=== PATIENT | male | born 1995 | race Caucasian/White ===

== ENCOUNTER → 2017-04-03 00:28 | Emergency (ER) | payer OTHER ==
[~2017-04-03 00:28] MED LIST: Acetaminophen TAB* 325 MG PO PRN; Al Hydrox/Mg Hydrox/Simet LIQ* 30 ML UDC PO PRN; Vitamin THERAPEUTIC TAB PO SCH
[2017-04-03 01:27] LABS: Hematocrit 39 % (42-52); Hemoglobin 13.5 g/dl (14.0-18.0); Mean Corpuscular HGB Conc 34 g/dl (31-36); Mean Corpuscular Hemoglobin 30 pg (27-31); Mean Corpuscular Volume 88 fL (80-94); Mean Platelet Volume 8 um3 (7.4-10.4); Red Blood Count 4.45 10^6/ul (4.0-5.4); Red Cell Distribution Width 13 % (10.5-15); White Blood Count 11.1 10^3/ul (3.5-10.8)
[2017-04-03 01:41] LABS: Urine Bilirubin Negative (Negative); Urine Glucose Negative (Negative); Urine Nitrite Negative (Negative)
[2017-04-03 01:41] LABS: ALT 12 U/L (7-52); AST 12 U/L (13-39); Acetaminophen < 15 mcg/mL; Albumin 4.6 g/dL (3.2-5.2); Alcohol 142 mg/dL (<10); Alkaline Phosphatase 40 U/L (34-104); Anion Gap 7 mmol/L (2-11); BUN/Creatinine Ratio 11.5 (8-20); Blood Urea Nitrogen 11 mg/dL (6-24); CO2 Carbon Dioxide 25 mmol/L (22-32); Calcium 9.1 mg/dL (8.6-10.3); Chloride 106 mmol/L (101-111); EGFR African American 124.8 (>60); EGFR Non-African American 97.1 (>60); Globulin 2.8 g/dL (2-4); Glucose 95 mg/dL (70-100); Potassium 3.5 mmol/L (3.5-5.0); Salicylate < 2.50 mg/dL (<30); Sodium 138 mmol/L (133-145); Total Protein 7.4 g/dL (6.4-8.9)
[2017-04-03 01:44] LABS: Benzodiazepine Urine Screen None Detected (None Detect)
[2017-04-03 01:52] LABS: TSH (Thyroid Stimulating Horm) 2.21 mcIU/mL (0.34-5.60)
--- NOTE | 2017-04-03 06:23 | ED ---
eLv Dominguez Rebecca, scribed for Ash Massey on 04/03/17 at 0055 . Psychiatric Complaint - HPI Summary HPI Summary: Pt is a 21 y/o M who presents to ED c/o depression with SIs. Pt reports that his current sx have been aggravated by his being trans, alleviated by nothing. Per triage, the pt had stated that he tried to hang himself. PMHx depression for which he is no longer on medication. - History Of Current Complaint Chief Complaint: EDMentalHealth Time Seen by Provider: 04/03/17 00:41 Hx Obtained From: Patient Onset/Duration: Still Present Character: Depressed Aggravating Factor(s): Other - Being trans Alleviating Factor(s): Nothing Associated Signs And Symptoms: Positive: Negative Related History: Positive For: Prior Psychiatric Issues - Depression Has Suicidal: Reports: Thoughts, With A Plan, Demonstrates Gesture - Per triage , pt reports trying to hang himself tonight Recent Stressor(s): Being trans - Allergies/Home Medications Allergies/Adverse Reactions: Allergies Allergy/AdvReac Type Severity Reaction Status Date / Time No Known Allergies Allergy Verified 04/03/17 00:36 PMH/Surg Hx/FS Hx/Imm Hx Endocrine/Hematology History: Denies: Hx Diabetes Psychiatric History: Reports: Hx Depression Infectious Disease History: No Infectious Disease History: Denies: Traveled Outside the [place] in Last 30 Days - Family History Known Family History: Negative: Diabetes - Social History Occupation: Student Alcohol Use: Occasionally Substance Use Type: Reports: None Review of Systems Negative: Fever Positive: Depressed, Other - SIs All Other Systems Reviewed And Are Negative: Yes Physical Exam - Summary Physical Exam Summary: Appearance: Well appearing, no pain distress Skin: warm, dry, reflects adequate perfusion Head/face: normal Eyes: EOMI, THEO ENT: normal Neck: supple, nontender Respiratory: CTA, breath sounds present Cardiovascular: RRR, pulses symmetrical Abdomen: nontender, soft Bowel: present Musculoskeletal: normal, strength/ROM intact Neuro: normal, sensory motor intact, A&Ox3 Psychiatric: Depressed Triage Information Reviewed: Yes Vital Signs On Initial Exam: Initial Vitals Temp Pulse Resp BP Pulse Ox 98.3 F 90 14 127/81 100 04/03/17 00:34 04/03/17 00:34 04/03/17 00:34 04/03/17 00:34 04/03/17 00:34 Vital Signs Reviewed: Yes Diagnostics - Vital Signs Vital Signs Temp Pulse Resp BP Pulse Ox 04/03/17 00:34 98.3 F 90 14 127/81 100 - Laboratory Result Diagrams: 04/03/17 01:07 04/03/17 01:07 Lab Statement: Any lab studies that have been ordered have been reviewed, and results considered in the medical decision making process. Course/Dx - Course Assessment/Plan: Pt is a 21 y/o M who presents to ED c/o depression with SIs. Pt reports that his current sx have been aggravated by his being trans, alleviated by nothing. Per triage, the pt had stated that he tried to hang himself. PMHx depression for which he is no longer on medication. Medically cleared for MHE at 0252. Upon completiion of MHE and consultation with Dr. Perry it has been determined that the pt will be admitted as an involuntary admission. Patient understands and agrees. Elevated BP noted and advised to f/u with PCP. - Differential Dx/Clinical Impression Provider Diagnosis: Depression, Suicidal ideations Discharge - Discharge Plan Condition: Stable Disposition: PSYCHIATRIC FACILITY-[facility] [place] The documentation as recorded by the Lev restrepo Rebecca accurately reflects the service I personally performed and the decisions made by , Ash Massey.
[2017-04-03 09:26] VITALS: BP 136/78
--- NOTE | 2017-04-04 09:06 | PN ---
ED Flex Patient Progress Note Subjective: This is a 21 year-old M who is pending transfer to another psychiatric facility secondary to attempted suicide via hanging. Patient remains a threat to himself. Objective: depressed with SI to hang self Assessment: Unspecified Depressive DO Plan: Pending transfer. Will follow up daily. Vital Signs Temp Pulse Resp BP Pulse Ox 99.5 F 103 16 136/78 100 04/03/17 09:26 04/03/17 09:26 04/03/17 09:26 04/03/17 09:26 04/03/17 09:26 Lab Results - Entire Visit 04/03/17 04/03/17 04/03/17 01:07 01:07 01:03 WBC 11.1 H RBC 4.45 Hgb 13.5 L Hct 39 L MCV 88 MCH 30 MCHC 34 RDW 13 Plt Count 328 MPV 8 Neut % (Auto) 66.0 Lymph % (Auto) 26.4 [place] % (Auto) 6.2 Eos % (Auto) 1.1 Baso % (Auto) 0.3 Absolute Neuts (auto) 7.3 Absolute Lymphs (auto) 2.9 Absolute Monos (auto) 0.7 Absolute Eos (auto) 0.1 Absolute Basos (auto) 0 Absolute Nucleated RBC 0.01 Nucleated RBC % 0 Sodium 138 Potassium 3.5 Chloride 106 Carbon Dioxide 25 Anion Gap 7 BUN 11 Creatinine 0.96 Est GFR ( Amer) 124.8 Est GFR (Non-Af Amer) 97.1 BUN/Creatinine Ratio 11.5 Glucose 95 Calcium 9.1 Total Bilirubin 0.30 AST 12 L ALT 12 Alkaline Phosphatase 40 Total Protein 7.4 Albumin 4.6 Globulin 2.8 Albumin/Globulin Ratio 1.6 TSH 2.21 Urine Color Straw Urine Appearance Clear Urine pH 5.0 Ur Specific [place] 1.009 L Urine Protein Negative Urine Ketones Trace H Urine Blood Negative Urine Nitrate Negative Urine Bilirubin Negative Urine Urobilinogen Negative Ur Leukocyte Esterase Negative Urine Glucose Negative Salicylates < 2.50 Urine Opiates Screen Acetaminophen < 15 Ur Barbiturates Screen Ur Phencyclidine Scrn Ur Amphetamines Screen U Benzodiazepines Scrn Urine Cocaine Screen U Cannabinoids Screen Serum Alcohol 142 H 04/03/17 01:03 WBC RBC Hgb Hct MCV MCH MCHC RDW Plt Count MPV Neut % (Auto) Lymph % (Auto) [place] % (Auto) Eos % (Auto) Baso % (Auto) Absolute Neuts (auto) Absolute Lymphs (auto) Absolute Monos (auto) Absolute Eos (auto) Absolute Basos (auto) Absolute Nucleated RBC Nucleated RBC % Sodium Potassium Chloride Carbon Dioxide Anion Gap BUN Creatinine Est GFR ( Amer) Est GFR (Non-Af Amer) BUN/Creatinine Ratio Glucose Calcium Total Bilirubin AST ALT Alkaline Phosphatase Total Protein Albumin Globulin Albumin/Globulin Ratio TSH Urine Color Urine Appearance Urine pH Ur Specific [place] Urine Protein Urine Ketones Urine Blood Urine Nitrate Urine Bilirubin Urine Urobilinogen Ur Leukocyte Esterase Urine Glucose Salicylates Urine Opiates Screen None detected Acetaminophen Ur Barbiturates Screen None detected Ur Phencyclidine Scrn None detected Ur Amphetamines Screen None detected U Benzodiazepines Scrn None detected Urine Cocaine Screen None detected U Cannabinoids Screen None detected Serum Alcohol
--- NOTE | 2017-04-04 10:01 | PN ---
ED Flex Patient Progress Note Subjective: This is a 21 year-old M who is pending transfer to another psychiatric facility secondary to suicidal ideation with plan/attempt . Pt offers no complaints at this. Slept well last night and ate well this morning. Objective: Vitals: Most recent vital signs documented below. General NAD, Alert and oriented x3. Heart: S1/S2, RRR Lungs: CTA Ab: soft, NTTP Assessment: SI Plan: Pending psychiatric transfer - will follow up daily until transfer or d/ c. Vital Signs Temp Pulse Resp BP Pulse Ox 99.5 F 103 16 136/78 100 04/03/17 09:26 04/03/17 09:26 04/03/17 09:26 04/03/17 09:26 04/03/17 09:26 Lab Results - Entire Visit 04/03/17 04/03/17 04/03/17 01:07 01:07 01:03 WBC 11.1 H RBC 4.45 Hgb 13.5 L Hct 39 L MCV 88 MCH 30 MCHC 34 RDW 13 Plt Count 328 MPV 8 Neut % (Auto) 66.0 Lymph % (Auto) 26.4 [place] % (Auto) 6.2 Eos % (Auto) 1.1 Baso % (Auto) 0.3 Absolute Neuts (auto) 7.3 Absolute Lymphs (auto) 2.9 Absolute Monos (auto) 0.7 Absolute Eos (auto) 0.1 Absolute Basos (auto) 0 Absolute Nucleated RBC 0.01 Nucleated RBC % 0 Sodium 138 Potassium 3.5 Chloride 106 Carbon Dioxide 25 Anion Gap 7 BUN 11 Creatinine 0.96 Est GFR ( Amer) 124.8 Est GFR (Non-Af Amer) 97.1 BUN/Creatinine Ratio 11.5 Glucose 95 Calcium 9.1 Total Bilirubin 0.30 AST 12 L ALT 12 Alkaline Phosphatase 40 Total Protein 7.4 Albumin 4.6 Globulin 2.8 Albumin/Globulin Ratio 1.6 TSH 2.21 Urine Color Straw Urine Appearance Clear Urine pH 5.0 Ur Specific [place] 1.009 L Urine Protein Negative Urine Ketones Trace H Urine Blood Negative Urine Nitrate Negative Urine Bilirubin Negative Urine Urobilinogen Negative Ur Leukocyte Esterase Negative Urine Glucose Negative Salicylates < 2.50 Urine Opiates Screen Acetaminophen < 15 Ur Barbiturates Screen Ur Phencyclidine Scrn Ur Amphetamines Screen U Benzodiazepines Scrn Urine Cocaine Screen U Cannabinoids Screen Serum Alcohol 142 H 04/03/17 01:03 WBC RBC Hgb Hct MCV MCH MCHC RDW Plt Count MPV Neut % (Auto) Lymph % (Auto) [place] % (Auto) Eos % (Auto) Baso % (Auto) Absolute Neuts (auto) Absolute Lymphs (auto) Absolute Monos (auto) Absolute Eos (auto) Absolute Basos (auto) Absolute Nucleated RBC Nucleated RBC % Sodium Potassium Chloride Carbon Dioxide Anion Gap BUN Creatinine Est GFR ( Amer) Est GFR (Non-Af Amer) BUN/Creatinine Ratio Glucose Calcium Total Bilirubin AST ALT Alkaline Phosphatase Total Protein Albumin Globulin Albumin/Globulin Ratio TSH Urine Color Urine Appearance Urine pH Ur Specific [place] Urine Protein Urine Ketones Urine Blood Urine Nitrate Urine Bilirubin Urine Urobilinogen Ur Leukocyte Esterase Urine Glucose Salicylates Urine Opiates Screen None detected Acetaminophen Ur Barbiturates Screen None detected Ur Phencyclidine Scrn None detected Ur Amphetamines Screen None detected U Benzodiazepines Scrn None detected Urine Cocaine Screen None detected U Cannabinoids Screen None detected Serum Alcohol
--- NOTE | 2017-04-04 11:25 | PN ---
ED Flex Patient Progress Note Pt goes by "Sherri" and requesting to use transgender medications today - she brought these with her yesterday. They include delestrogen, finasteride, spironoloctone and progesterone. Spoke w/ Shalini Montero who provides medical care through [facility] - she confirms these meds are currently rx'd and okay to continue medically as long as okay with MH. Call out to psychiatrist to discuss. Vital Signs Temp Pulse Resp BP Pulse Ox 99.5 F 103 16 136/78 100 04/03/17 09:26 04/03/17 09:26 04/03/17 09:26 04/03/17 09:26 04/03/17 09:26 Lab Results - Entire Visit 04/03/17 04/03/17 04/03/17 01:07 01:07 01:03 WBC 11.1 H RBC 4.45 Hgb 13.5 L Hct 39 L MCV 88 MCH 30 MCHC 34 RDW 13 Plt Count 328 MPV 8 Neut % (Auto) 66.0 Lymph % (Auto) 26.4 [place] % (Auto) 6.2 Eos % (Auto) 1.1 Baso % (Auto) 0.3 Absolute Neuts (auto) 7.3 Absolute Lymphs (auto) 2.9 Absolute Monos (auto) 0.7 Absolute Eos (auto) 0.1 Absolute Basos (auto) 0 Absolute Nucleated RBC 0.01 Nucleated RBC % 0 Sodium 138 Potassium 3.5 Chloride 106 Carbon Dioxide 25 Anion Gap 7 BUN 11 Creatinine 0.96 Est GFR ( Amer) 124.8 Est GFR (Non-Af Amer) 97.1 BUN/Creatinine Ratio 11.5 Glucose 95 Calcium 9.1 Total Bilirubin 0.30 AST 12 L ALT 12 Alkaline Phosphatase 40 Total Protein 7.4 Albumin 4.6 Globulin 2.8 Albumin/Globulin Ratio 1.6 TSH 2.21 Urine Color Straw Urine Appearance Clear Urine pH 5.0 Ur Specific [place] 1.009 L Urine Protein Negative Urine Ketones Trace H Urine Blood Negative Urine Nitrate Negative Urine Bilirubin Negative Urine Urobilinogen Negative Ur Leukocyte Esterase Negative Urine Glucose Negative Salicylates < 2.50 Urine Opiates Screen Acetaminophen < 15 Ur Barbiturates Screen Ur Phencyclidine Scrn Ur Amphetamines Screen U Benzodiazepines Scrn Urine Cocaine Screen U Cannabinoids Screen Serum Alcohol 142 H 04/03/17 01:03 WBC RBC Hgb Hct MCV MCH MCHC RDW Plt Count MPV Neut % (Auto) Lymph % (Auto) [place] % (Auto) Eos % (Auto) Baso % (Auto) Absolute Neuts (auto) Absolute Lymphs (auto) Absolute Monos (auto) Absolute Eos (auto) Absolute Basos (auto) Absolute Nucleated RBC Nucleated RBC % Sodium Potassium Chloride Carbon Dioxide Anion Gap BUN Creatinine Est GFR ( Amer) Est GFR (Non-Af Amer) BUN/Creatinine Ratio Glucose Calcium Total Bilirubin AST ALT Alkaline Phosphatase Total Protein Albumin Globulin Albumin/Globulin Ratio TSH Urine Color Urine Appearance Urine pH Ur Specific [place] Urine Protein Urine Ketones Urine Blood Urine Nitrate Urine Bilirubin Urine Urobilinogen Ur Leukocyte Esterase Urine Glucose Salicylates Urine Opiates Screen None detected Acetaminophen Ur Barbiturates Screen None detected Ur Phencyclidine Scrn None detected Ur Amphetamines Screen None detected U Benzodiazepines Scrn None detected Urine Cocaine Screen None detected U Cannabinoids Screen None detected Serum Alcohol
--- NOTE | 2017-04-04 12:17 | ED ---
Mariana Dominguez Alfonso, scribed for Daniel Aguilar MD on 04/04/17 at 1216 . Progress - Progress Note Progress Note: This patient was signed out from Dr. Massey, pending disposition, awaiting MHE. The patients condition is deemed stable by Dr. Zamarripa and the patient will be discharged to home with Dx of substance induced depression and therapist follow up in 3 days. - Consult/PCP Time Called: 03:19 Course/Dx - Diagnoses Provider Diagnoses: Depression, Suicidal ideations The documentation as recorded by the Mariana restrepo Alfonso accurately reflects the service I personally performed and the decisions made by , Daniel Aguilar MD.
== END ==
LOC: ED 00:28
DX: F32.9 Major depressive disorder, single episode, unspecified (principal); R45.851 Suicidal ideations
CPT/HCPCS: 36415; 80053; 80307; 80320; 80329; 81003; 84443; 85025; 99285; G0480